=== PATIENT | female | born 1990 | race Caucasian/White ===

== ENCOUNTER → 2017-01-20 | Outpatient (REF) | payer OTHER ==
[~2017-01-20] MED LIST: ACET50TA PO; IBUP-1114 PO; OMEP10CASR PO; STUACAP PO
[2017-01-20 12:48] LABS: MEAN CORPUSCULAR HEMOGLOBIN 26.9 pg (27.0-33.0); MEAN CORPUSCULAR HGB CONC 32.2 g/dl (32.0-36.5); MEAN CORPUSCULAR VOLUME 83.5 fl (80.0-96.0); RED CELL DISTRIBUTION WIDTH 13.5 % (11.5-14.5)
[2017-01-20 12:51] LABS: FOLATE 8.2 NG/ML; VITAMIN B12 LEVEL 319 PG/ML
[2017-01-20 12:54] LABS: ALBUMIN 3.7 GM/DL (3.2-5.2); ALBUMIN/GLOBULIN RATIO 1.23 (1.00-1.93); ALKALINE PHOSPHATASE 71 U/L (45-117); ALT/SGPT 35 U/L (12-78); ANION GAP 9 MEQ/L (8-16); AST/SGOT 20 U/L (15-37); BILIRUBIN,TOTAL 0.3 MG/DL (0.2-1.0); BLOOD UREA NITROGEN 10 MG/DL (7-18); CALCIUM LEVEL 8.7 MG/DL (8.5-10.1); CARBON DIOXIDE LEVEL 28 MEQ/L (21-32); CHLORIDE LEVEL 108 MEQ/L (98-107); CHOLESTEROL LEVEL 110 MG/DL (<200); CREATININE FOR GFR 0.61 MG/DL (0.55-1.02); FERRITIN 32 NG/ML (8-252); FREE T4 0.92 NG/DL (0.76-1.46); GLOMERULAR FILTRATION RATE > 60.0 (>60); GLUCOSE, FASTING 90 MG/DL (70-105); PERCENT SATURATION 13.5 % (13.2-37.4); POTASSIUM SERUM 3.7 MEQ/L (3.5-5.1); SODIUM LEVEL 145 MEQ/L (136-145); TOTAL IRON BINDING CAPACITY 363 UG/DL (250-450); TOTAL PROTEIN 6.7 GM/DL (6.4-8.2); TRIGLYCERIDES LEVEL 70 MG/DL (<150)
== END ==
LOC: M LABDRWAD 12:13
PROVIDERS: ATTEND Registered Nurse
DX: E66.01 Morbid (severe) obesity due to excess calories (principal)

== ENCOUNTER → 2017-02-05 | Outpatient (CLI) | payer OTHER ==
--- NOTE | 2017-02-05 10:45 | REP ---
Clinical: Chest pain. Obesity. Comparison: 09/09/2011 . Technique: PA and lateral. Findings: The mediastinum and cardiac silhouette are normal. The lung hines are clear and without acute consolidation, effusion, or pneumothorax. The skeletal structures are intact and normal. Impression: 1. No acute cardiopulmonary process. Signed by Owen Butcher MD 02/05/2017 10:36 A
--- NOTE | 2017-02-05 10:48 | ECGEPIP ---
Stationary ECG Study [facility] Test Date: 2017-02-05 Pat Name: FRANNY WATKINS Department: Room: - Gender: F Aba Therapist: FRANKIE : 1990 Requested By: Laurel Garduno Order Number: [id number] Reading MD: Edy Solorzano Measurements Intervals [place] Rate: 90 P: 57 TX: 117 QRS: 28 QRSD: 88 T: 20 QT: 330 QTc: 404 Interpretive Statements SINUS RHYTHM WITH SINUS ARRHYTHMIA WITH SHORT TX INTERVAL No prior ECG available for comparison at the time of interpretation. Electronically Signed On 02-05-2017 10:48:27 EDT by Edy Solorzano
== END ==
LOC: M RAD 10:15
PROVIDERS: ATTEND Registered Nurse
DX: E66.01 Morbid (severe) obesity due to excess calories (principal)

== ENCOUNTER → 2018-02-16 | Outpatient (REF) | payer OTHER ==
[2018-02-16 19:56] LABS: HEMATOCRIT 42.5 % (36.0-47.0); HEMOGLOBIN 13.3 g/dl (12.0-15.5); MEAN CORPUSCULAR HEMOGLOBIN 27.6 pg (27.0-33.0); MEAN CORPUSCULAR HGB CONC 31.3 g/dl (32.0-36.5); MEAN CORPUSCULAR VOLUME 88.2 fl (80.0-96.0); PLATELET COUNT, AUTOMATED 364 10^3/uL (150-450); RED BLOOD COUNT 4.82 10^6/uL (4.00-5.40); RED CELL DISTRIBUTION WIDTH 12.5 % (11.5-14.5); WHITE BLOOD COUNT 9.8 10^3/uL (4.0-10.0)
[2018-02-16 20:10] LABS: ALBUMIN 3.8 GM/DL (3.2-5.2); ALBUMIN/GLOBULIN RATIO 1.19 (1.00-1.93); ALKALINE PHOSPHATASE 100 U/L (45-117); ALT/SGPT 19 U/L (12-78); ANION GAP 7 MEQ/L (8-16); AST/SGOT 19 U/L (7-37); BILIRUBIN,TOTAL 0.4 MG/DL (0.2-1.0); BLOOD UREA NITROGEN 9 MG/DL (7-18); CALCIUM LEVEL 8.7 MG/DL (8.5-10.1); CARBON DIOXIDE LEVEL 27 MEQ/L (21-32); CHLORIDE LEVEL 106 MEQ/L (98-107); CREATININE FOR GFR 0.57 MG/DL (0.55-1.30); FERRITIN 37 NG/ML (8-252); GLOMERULAR FILTRATION RATE > 60.0 (>60); GLUCOSE, FASTING 93 MG/DL (70-100); IRON (FE) 19 UG/DL (50-170); PERCENT SATURATION 5.1 % (13.2-45.0); SODIUM LEVEL 140 MEQ/L (136-145); TOTAL IRON BINDING CAPACITY 369 UG/DL (250-450)
[2018-02-16 20:13] LABS: TOTAL 25(OH) VITAMIN D 24.1 NG/ML (30.0-100.0)
[2018-02-16 20:14] LABS: VITAMIN B12 LEVEL 525 PG/ML (247-911)
[2018-02-22 00:08] LABS: VITAMIN B1 LEVEL WHOLE BLOOD 129.2 nmol/L (66.5-200.0)
== END ==
LOC: M LABDRWAD 19:05
DX: K91.2 Postsurgical malabsorption, not elsewhere classified (principal)

== ENCOUNTER → 2018-08-28 | Outpatient (REF) | payer OTHER | LOC: M LAB REF 18:33 | DX: Z12.4 Encounter for screening for malignant neoplasm of cervix (principal) ==

== ENCOUNTER → 2018-08-28 | Outpatient (CLI) | payer OTHER | LOC: M RAD 10:26 | DX: Z12.31 Encounter for screening mammogram for malignant neoplasm of breast (principal) | CPT/HCPCS: 77065 ==

== ENCOUNTER → 2018-10-18 | Outpatient (CLI) | payer OTHER | LOC: M SMT 09:35 | DX: J18.1 Lobar pneumonia, unspecified organism (principal) | CPT/HCPCS: 71046 ==

== ENCOUNTER → 2019-02-21 | Outpatient (REF) | payer OTHER ==
[~2019-02-21] MED LIST changes: -ACET50TA PO; +MAPA500T2 PO
== END ==
LOC: M LAB REF 17:40
PROVIDERS: ATTEND Physician Assistant
DX: R30.0 Dysuria (principal)

== ENCOUNTER → 2019-05-28 | Outpatient (CLI) | payer OTHER ==
--- NOTE | 2019-05-28 09:40 | REP ---
PA and lateral chest: Comparison is 10/18/2018. The lung hines are clear. The cardiac size is normal. The juan, mediastinum, and skeletal structures are unremarkable. Impression: Negative PA and lateral chest. There is no interval change. Electronically Signed by Jesus Winkler MD 05/28/2019 09:31 A
== END ==
LOC: M SMT 09:08
PROVIDERS: ATTEND Physician Assistant
DX: R05 Cough (principal)

== ENCOUNTER → 2019-08-20 | Outpatient (REF) | payer OTHER | LOC: M LAB REF 12:22 | PROVIDERS: ATTEND Pediatrics | DX: R41.82 Altered mental status, unspecified (principal) ==

== ENCOUNTER → 2019-10-29 | Outpatient (CLI) | payer MEDICAID, OTHER | LOC: M OUTALCOH 08:45 | PROVIDERS: ATTEND Psychiatry & Neurology Psychiatry | DX: F10.20 Alcohol dependence, uncomplicated (principal) ==

== ENCOUNTER → 2019-11-15 | Outpatient (CLI) | payer MEDICAID | LOC: M LAB 12:37 | PROVIDERS: ATTEND Counselor Addiction (Substance Use Disorder) | DX: F10.20 Alcohol dependence, uncomplicated (principal) ==

== ENCOUNTER → 2019-11-23 | Outpatient (REF) | payer OTHER | LOC: M PLALAB 12:14 | PROVIDERS: ATTEND Advanced Practice Midwife | DX: Z53.9 Procedure and treatment not carried out, unspecified reason (principal) ==

== ENCOUNTER → 2019-11-23 | Outpatient (CLI) | payer MEDICAID | LOC: M PLALAB 09:15 | PROVIDERS: ATTEND Advanced Practice Midwife | DX: Z32.01 Encounter for pregnancy test, result positive (principal) ==

== ENCOUNTER → 2019-11-25 | Outpatient (CLI) | payer OTHER | LOC: M LAB 09:53 | PROVIDERS: ATTEND Advanced Practice Midwife | DX: O26.851 Spotting complicating pregnancy, first trimester (principal); Z3A.00 Weeks of gestation of pregnancy not specified ==

== ENCOUNTER → 2019-11-29 | Outpatient (CLI) | payer OTHER ==
--- NOTE | 2019-11-30 03:16 | REP ---
Clinical: Dating and viability. Technique: Transabdominal first trimester obstetrical ultrasound with color Doppler evaluation. Findings: Ultrasound examination demonstrates early intrauterine including gestational sac with yolk sac and pole. CRL of 4 mm corresponds to 6 weeks 0 days gestational age with estimated date of delivery 07/24/2020. heart rate equals 104 beats per minute. No gross abnormalities are identified. Maternal ovaries demonstrate right corpus luteal cyst. Cervix measures 3.4 cm in length and appears closed. Impression: Single live early intrauterine at 6 weeks 0 days gestational age. Complete anatomical assessment should be performed at 19-20 weeks.
== END ==
LOC: M WHC 13:18
PROVIDERS: ATTEND Advanced Practice Midwife
DX: O26.851 Spotting complicating pregnancy, first trimester (principal); Z3A.19 19 weeks gestation of pregnancy

== ENCOUNTER 2019-12-11 10:00 | Outpatient (RCR) | payer MEDICAID, OTHER | END 2019-12-14 | LOC: M OUTALCOH 10:00 | PROVIDERS: ATTEND Psychiatry & Neurology Psychiatry | DX: F10.20 Alcohol dependence, uncomplicated (principal) ==

== ENCOUNTER → 2019-12-26 | Outpatient (CLI) | payer OTHER ==
[~2019-12-26] MED LIST changes: +AMOX500C PO; +ONDA4TAB6
[2019-12-26 09:14] LABS: HEMOGLOBIN 12.5 g/dl (12.0-15.5); MEAN CORPUSCULAR HGB CONC 32.1 g/dl (32.0-36.5); MEAN CORPUSCULAR VOLUME 87.4 fl (80.0-96.0); PLATELET COUNT, AUTOMATED 301 10^3/uL (150-450); RED BLOOD COUNT 4.46 10^6/uL (4.00-5.40); WHITE BLOOD COUNT 5.1 10^3/uL (4.0-10.0)
[2019-12-26 09:45] LABS: ALBUMIN 3.2 GM/DL (3.2-5.2); ALT/SGPT 19 U/L (12-78); BILIRUBIN,TOTAL 0.3 MG/DL (0.2-1.0); BLOOD UREA NITROGEN 7 MG/DL (7-18); CALCIUM LEVEL 8.7 MG/DL (8.5-10.1); CARBON DIOXIDE LEVEL 28 MEQ/L (21-32); CHLORIDE LEVEL 106 MEQ/L (98-107); CREATININE FOR GFR 0.53 MG/DL (0.55-1.30); GLOMERULAR FILTRATION RATE > 60.0 (>60); GLUCOSE, FASTING 88 MG/DL (70-100); SODIUM LEVEL 140 MEQ/L (136-145); TOTAL PROTEIN 6.5 GM/DL (6.4-8.2)
[2019-12-26 10:36] LABS: RUBELLA IgG QUALITATIVE IMMUNE (IMMUNE)
[2019-12-26 10:37] LABS: HEPATITIS B SURFACE ANTIGEN NEGATIVE (NEGATIVE)
[2019-12-26 10:54] LABS: CHLAMYDIA DNA AMPLIFICATION NEGATIVE (NEGATIVE); GC DNA AMPLIFICATION NEGATIVE (NEGATIVE)
[2019-12-26 11:05] LABS: HEPATITIS C VIRUS ABY INDEX < 0.0 INDEX (<0.8)
[2019-12-26 11:06] LABS: HIV 1&2 SCREEN CENTAUR NEGATIVE (NEGATIVE)
== END ==
LOC: M LAB 08:10
PROVIDERS: ATTEND Advanced Practice Midwife
DX: Z33.1 Pregnant state, incidental (principal)

== ENCOUNTER 2019-12-27 16:29 | Emergency (ER) | payer OTHER ==
[~2019-12-27] VITALS: Ht 162.6 cm; Wt 91.9 kg
[~2019-12-27 16:29] MED LIST changes: -AMOX500C PO; -ONDA4TAB6
[2019-12-27] MEDS ORDERED: ONDA4TAB6 (16:35)
[2019-12-27] MEDS ORDERED: METOCLOPRAMIDE INJ 10MG/2ML VIAL (J2765) IV ONE (19:15)
[2019-12-27] MEDS ORDERED: NS 1,000 ML IV ONE (19:15)
[2019-12-27 19:19] LABS: BASO % 0.5 % (0.0-1.0); EOS # 0.1 10^3/uL (0.0-0.5); EOS % 1.1 % (0.0-3.0); HEMATOCRIT 38.7 % (36.0-47.0); HEMOGLOBIN 12.4 g/dl (12.0-15.5); LYMPH # 2.2 10^3/uL (1.5-5.0); LYMPH % 34.4 % (24.0-44.0); MEAN CORPUSCULAR HEMOGLOBIN 27.7 pg (27.0-33.0); MEAN CORPUSCULAR VOLUME 86.6 fl (80.0-96.0); MONO # 0.4 10^3/uL (0.0-0.8); MONO % 6.8 % (0.0-5.0); NEUTROPHILS # 3.7 10^3/uL (1.5-8.5); PLATELET COUNT, AUTOMATED 343 10^3/uL (150-450); RED BLOOD COUNT 4.47 10^6/uL (4.00-5.40); WHITE BLOOD COUNT 6.5 10^3/uL (4.0-10.0)
[2019-12-27 20:07] LABS: ALBUMIN 3.5 GM/DL (3.2-5.2); ALT/SGPT 25 U/L (12-78); BILIRUBIN,DIRECT 0.1 MG/DL (0.0-0.2); BILIRUBIN,TOTAL 0.3 MG/DL (0.2-1.0); BLOOD UREA NITROGEN 8 MG/DL (7-18); CARBON DIOXIDE LEVEL 27 MEQ/L (21-32); CHLORIDE LEVEL 103 MEQ/L (98-107); CREATININE FOR GFR 0.44 MG/DL (0.55-1.30); GLOMERULAR FILTRATION RATE > 60.0 (>60); GLUCOSE, FASTING 81 MG/DL (70-100); HCG, SERUM QUANTITATIVE 45408 MIU/ML; SODIUM LEVEL 138 MEQ/L (136-145); TOTAL PROTEIN 6.8 GM/DL (6.4-8.2)
--- NOTE | 2019-12-27 21:59 | REPVR ---
PROCEDURE INFORMATION: Exam: US First Trimester, Transabdominal Exam date and time: 12/27/19 (9:24pm) Age: 29 years old Clinical indication: female. Lower abdominal or pelvic pain. First trimester. Gestational age: 10 weeks 5 days. Spotting / cramping. TECHNIQUE: Imaging protocol: Real-time transabdominal obstetrical ultrasound of the maternal pelvis and a first trimester , less than 14 weeks 0 days, with image documentation. COMPARISON: US OB of 11/29/19 FINDINGS: The LMP is reported to be: 10/18/19 An early live intrauterine gestation is identified, approx. 10 weeks 6 days gestational age, based on the current crown-rump length (CRL = 39 mm). Based on the earlier sonogram, the MAGDI = 07/24/20. Close correlation with the menstrual history is noted. Appropriate interval growth has occurred over the past 4-5 weeks. heart rate is recorded at 178 bpm. The uterus is anteverted. The maternal right ovary measures 2.2 x 3.4 x 2.2 cm in dimensions. The left ovary measures 2.5 x 2.8 x 1.8 cm in dimensions. There is no evidence of torsion on Doppler evaluation. No free pelvic fluid is appreciated. No solid adnexal mass. IMPRESSION: A single live IUP is seen, at 10 weeks 6 days gestational age (based on the CRL). heartbeat is recorded. Appropriate interval growth has occurred over the past 4-5 weeks. No adnexal pathology is seen. No free pelvic fluid is noted. Electronically signed by: Kenzie Norton On 12/27/2019 21:58:48 PM
[2019-12-27] MEDS ORDERED: AMOX500C PO (22:08)
[2019-12-27 22:31] VITALS: BP 135/91
== END 2019-12-27 22:22 | disposition home or self-care (01) ==
LOC: M ED 16:29
DX: O23.41 Unspecified infection of urinary tract in pregnancy, first trimester (principal); O21.9 Vomiting of pregnancy, unspecified; O99.511 Diseases of the respiratory system complicating pregnancy, first trimester; J45.909 Unspecified asthma, uncomplicated; Z3A.10 10 weeks gestation of pregnancy; Z88.8 Allergy status to other drugs, medicaments and biological substances; Z79.899 Other long term (current) drug therapy
CPT/HCPCS: 76801; 80048; 80076; 81001; 84702; 85025; 86901; 87086; 93976; 99284; J2765

== ENCOUNTER 2020-01-08 10:00 | Outpatient (RCR) | payer MEDICAID ==
[~2020-01-08 10:00] MED LIST changes: +AMOX500C PO; +ONDA4TAB6
== END 2020-01-12 ==
LOC: M OUTALCOH 10:00
PROVIDERS: ATTEND Psychiatry & Neurology Psychiatry
DX: F10.20 Alcohol dependence, uncomplicated (principal)

== ENCOUNTER → 2020-02-12 | Outpatient (CLI) | payer OTHER ==
[2020-02-12 18:07] LABS: HEMOGLOBIN A1c 5.1 %
== END ==
LOC: M WUC 10:54
PROVIDERS: ATTEND Nurse Practitioner Women's Health
DX: E66.9 Obesity, unspecified (principal); Z98.84 Bariatric surgery status

== ENCOUNTER → 2020-02-13 | Outpatient (CLI) | payer BC, OTHER | LOC: M ADAMS 12:00 | PROVIDERS: ATTEND Nurse Practitioner Women's Health | DX: Z31.438 Encounter for other genetic testing of female for procreative management (principal) ==

== ENCOUNTER → 2020-02-15 | Outpatient (REF) | payer OTHER ==
[2020-02-15 17:58] LABS: APPEARANCE, URINE TURBID (CLEAR); BACTERIA, URINE AUTO 3+ (NEGATIVE); BILIRUBIN, URINE AUTO NEGATIVE (NEGATIVE); BLOOD, URINE BLOOD NEGATIVE (NEGATIVE); COLOR, URINE AMBER (YELLOW); GLUCOSE, URINE (UA) AUTO NEGATIVE (NEGATIVE); KETONE, URINE AUTO TRACE mg/dL (NEGATIVE); LEUKOCYTE ESTERASE, URINE AUTO TRACE (NEGATIVE); NITRITE, URINE AUTO NEGATIVE (NEGATIVE); PROTEIN, URINE AUTO NEGATIVE (NEGATIVE); RBC, URINE AUTO 0 /HPF (0-3); SPECIFIC GRAVITY URINE AUTO 1.029 (1.002-1.035); SQUAMOUS EPITHELIAL CELL UR AU 5 /HPF (0-6); WBC, URINE AUTO 6 /HPF (0-3)
== END ==
LOC: M SFHCWAGY 16:45
PROVIDERS: ATTEND Advanced Practice Midwife
DX: O26.851 Spotting complicating pregnancy, first trimester (principal); Z3A.00 Weeks of gestation of pregnancy not specified

== ENCOUNTER → 2020-02-15 | Outpatient (CLI) | payer BC, OTHER ==
--- NOTE | 2020-02-15 13:41 | REP ---
OB ULTRASOUND: Real-time sonographic evaluation of the gravid uterus performed utilizing transabdominal and endovaginal technique. There is a single intrauterine gestation. The estimated gestational age is 17 weeks 1 day, EDC 07/24/2020. Today's measurements indicate appropriate growth. Biometry and Growth: BPD 39 mm = 17 weeks 5 days, 76th percentile HC 139 mm = 17 weeks 2 days, 50th percentile AC 116 mm = 17 weeks 2 days, 57th percentile FL 24 mm = 17 weeks 1 day, 52nd percentile HC/AC ratio 1.20 within normal range. Estimated weight 188 grams 53rd percentile. SEEN/GROSSLY UNREMARKABLE Lateral ventricles Yes Posterior fossa Yes Upper lip Yes Four-chamber heart No LVOT No RVOT No Stomach Yes Cord insertion Yes Three vessel cord Yes Kidneys Yes Bladder Yes Spine No Cervical length: Closed and measures 3.7 cm in length. heart rate: 150 beats per minute. position: Vertex. Placenta: Anterior and grade 1 with no previa or abruption. Amniotic fluid: Within normal limits. Edge of the placenta is approximately 3.6 cm from the internal cervical os.
== END ==
LOC: M WHC 11:16
PROVIDERS: ATTEND Advanced Practice Midwife
DX: O26.852 Spotting complicating pregnancy, second trimester (principal); Z3A.17 17 weeks gestation of pregnancy

== ENCOUNTER → 2020-02-20 | Outpatient (CLI) | payer BC ==
--- NOTE | 2020-02-20 09:40 | REP ---
OBSTETRIC SONOGRAPHY: HISTORY: Supervision of for anatomy. COMPARISON STUDY: February 15, 2020. FINDINGS: Scanning through the gravid uterus demonstrates a single living intrauterine gestation in an oblique head to the maternal left lie. motion is observed and heart rate is recorded at 144 beats per minute. An anterior grade 0 placenta is seen without evidence of previa or abruption. The inferior edge of the placenta is 3.6 cm from the internal cervical os on transabdominal imaging. Amniotic fluid is subjectively normal. Closed cervical length is 3.4 cm. No extrauterine abnormality is observed. There has been appropriate interval growth. Exam quality is inhibited some degree by maternal body habitus and position. Left ventricular cardiac outflow tract and spine are visualized today and felt to be unremarkable. The four-chamber heart and right ventricular outflow flow tract views are less than optimally seen again due to position. Biometry Chart: BPD 4.0 cm = 18 weeks 0 days HC 14.4 cm = 17 weeks 4 days AC 12.3 cm = 17 weeks, 6 days FL 2.6 cm = 17 weeks 5 days HL 2.4 cm = 17 weeks 3 days HC/AC ratio normal 1.17 Cephalic index normal 0.78. Estimated weight 211 grams, 0 pounds 7 ounces, 42nd percentile for 17 weeks 6 days. IMPRESSION: Viable single intrauterine gestation at 17 weeks 5 days by today's composite sonographic criteria. Expected gestational age estimate based on prior sonography is 17 weeks 6 days. MAGDI by prior sonography July 24, 2020. Four-chamber heart and right ventricular cardiac outflow tract views less than optimally seen.
== END ==
LOC: M WHC 07:57
PROVIDERS: ATTEND Nurse Practitioner Women's Health
DX: Z34.82 Encounter for supervision of other normal pregnancy, second trimester (principal); Z3A.17 17 weeks gestation of pregnancy

== ENCOUNTER 2020-03-12 08:00 | Outpatient (RCR) | payer BC, MEDICAID | END 2020-03-13 | LOC: M OUTALCOH 08:00 | PROVIDERS: ATTEND Psychiatry & Neurology Addiction Medicine | DX: F10.20 Alcohol dependence, uncomplicated (principal) ==

== ENCOUNTER → 2020-03-12 | Outpatient (CLI) | payer BC ==
--- NOTE | 2020-03-13 04:29 | REP ---
Clinical: Anatomical evaluation. Comparison: 02/20/2020 . Findings: Examination demonstrates a single live intrauterine in cephalic presentation. motion is identified by technologist. Placenta is noted anterior and grade I without evidence for placenta previa or abruption. Amniotic fluid volume is normal. Cervix measures 3.8 cm in length and appears closed. No evidence for nuchal cord. Gestational age by LMP 20 weeks 6 days with MAGDI 07/24/2020 . Gestational age by current measurements 20 weeks 5 days with MAGDI 07/25/2020 . FHR equals 140 beats per minute. Estimated weight 415 grams ( 61st percentile). Anatomical assessment demonstrates normal structures including cranium, choroid plexus, cerebellum/posterior fossa, facial features, lungs, diaphragm, stomach, cord insertion/three-vessel cord, kidneys/bladder. Impression: Single live intrauterine in cephalic presentation demonstrating appropriate interval growth. Continued limited evaluation of the heart is again noted due to positioning and maternal body habitus. Remainder of the examination appears normal.
== END ==
LOC: M WHC 12:53
PROVIDERS: ATTEND Obstetrics & Gynecology
DX: Z36.2 Encounter for other antenatal screening follow-up (principal); Z3A.20 20 weeks gestation of pregnancy

== ENCOUNTER 2020-03-27 14:23 | Outpatient (RCR) | payer BC | END 2020-04-13 | LOC: M OUTALCOH 14:23 | PROVIDERS: ATTEND Psychiatry & Neurology Addiction Medicine | DX: F10.20 Alcohol dependence, uncomplicated (principal) ==

== ENCOUNTER 2020-04-14 11:26 | Outpatient (RCR) | payer BC | END 2020-05-13 | LOC: M OUTALCOH 11:26 | PROVIDERS: ATTEND Psychiatry & Neurology Addiction Medicine | DX: F10.20 Alcohol dependence, uncomplicated (principal) ==

== ENCOUNTER → 2020-04-14 | Outpatient (CLI) | payer BC ==
--- NOTE | 2020-04-15 03:20 | REP ---
Clinical: Anatomical evaluation. Comparison: 03/12/2020 . Findings: Examination demonstrates a single live intrauterine in cephalic presentation. motion is identified by technologist. Placenta is noted anterior and grade I without evidence for placenta previa or abruption. Amniotic fluid volume is normal. Cervix measures 3.5 cm in length and appears closed. No evidence for nuchal cord. Gestational age by LMP 25 weeks 4 days with MAGDI 07/24/1928 . Gestational age by current measurements 25 weeks 1 day with MAGDI 07/27/2020 . FHR equals 161 beats per minute. Estimated weight 845 grams ( 46 percentile). Anatomical assessment demonstrates normal structures including cranium, four-chamber heart/ventricular outflow tracts, diaphragm, stomach, cord insertion, kidneys/bladder, and spine. Impression: Single live intrauterine in cephalic presentation demonstrating appropriate estimated weight and growth. No gross abnormalities are identified.
== END ==
LOC: M WHC 12:58
PROVIDERS: ATTEND Obstetrics & Gynecology
DX: O99.842 Bariatric surgery status complicating pregnancy, second trimester (principal)

== ENCOUNTER → 2020-05-05 | Outpatient (REF) | payer BC ==
[2020-05-05 11:11] LABS: HEMATOCRIT 33.7 % (36.0-47.0); HEMOGLOBIN 10.5 g/dl (12.0-15.5); MEAN CORPUSCULAR HEMOGLOBIN 27.6 pg (27.0-33.0); MEAN CORPUSCULAR HGB CONC 31.2 g/dl (32.0-36.5); MEAN CORPUSCULAR VOLUME 88.5 fl (80.0-96.0); PLATELET COUNT, AUTOMATED 330 10^3/uL (150-450); RED BLOOD COUNT 3.81 10^6/uL (4.00-5.40); WHITE BLOOD COUNT 6.9 10^3/uL (4.0-10.0)
== END ==
LOC: M PLALAB 08:15
PROVIDERS: ATTEND Obstetrics & Gynecology
DX: O99.842 Bariatric surgery status complicating pregnancy, second trimester (principal)

== ENCOUNTER → 2020-05-29 | Outpatient (CLI) | payer BC ==
[~2020-05-29] MED LIST changes: +MULTTAB20 PO; +TUMS750C5 PO
--- NOTE | 2020-05-29 17:27 | REP ---
OB ULTRASOUND: Real-time sonographic evaluation of gravid uterus performed. There is a single living intrauterine gestation, estimated gestational age 32 weeks 1 day, EDC 07/23/2020. Today's measurements indicate appropriate growth BPD 80 mm = 32 weeks 1 day, 50th percentile HC 291 mm = 32 weeks 0 days, 49th percentile AC 276 mm = 31 weeks 4 days, 43rd percentile Femur length 62 mm = 32 weeks 1 day, 51st percentile HC/AC ratio 1.06, within normal range 0.95-1.14. Estimated weight 1851 grams, 38th percentile. Cervix is closed and measures 3.1 cm in length. heart rate 135 beats per minute. Amniotic fluid within normal limits. KESHIA 17.2, normal range 8.6-24.2. position vertex. Placenta anterior and grade 2 with no previa or abruption.
== END ==
LOC: M PLAIMG 13:15
PROVIDERS: ATTEND Advanced Practice Midwife
DX: O99.843 Bariatric surgery status complicating pregnancy, third trimester (principal); Z3A.32 32 weeks gestation of pregnancy

== ENCOUNTER → 2020-06-17 | Outpatient (REF) | payer BC | LOC: M SFHCWAGY 08:11 | PROVIDERS: ATTEND Obstetrics & Gynecology | DX: Z34.83 Encounter for supervision of other normal pregnancy, third trimester (principal); Z3A.00 Weeks of gestation of pregnancy not specified ==

== ENCOUNTER 2020-07-02 23:44 | Outpatient (CLI) | payer BC ==
[~2020-07-02] VITALS: Ht 165.1 cm; Wt 104.6 kg
[~2020-07-02 23:44] MED LIST changes: -MULTTAB20 PO; -TUMS750C5 PO
[2020-07-03 00:04] VITALS: BP 122/70
[2020-07-03] MEDS ORDERED: PRENATAL VITAMINS CHEWABLE TABLET PO SCH (09:00)
== END 2020-07-03 03:40 | disposition home or self-care (01) ==
LOC: M LDO 23:44
PROVIDERS: ATTEND Advanced Practice Midwife
DX: O47.1 False labor at or after 37 completed weeks of gestation (principal); Z3A.37 37 weeks gestation of pregnancy
CPT/HCPCS: 59025; G0378; G0463

== ENCOUNTER 2020-07-05 05:23 | Outpatient (CLI) | payer BC ==
--- NOTE | 2020-07-05 08:15 | IPNPDOC ---
Text Note Date of Service The patient was seen on 07/05/20. NOTE Outpatient 30yo MAGDI 07/22/2020. Presents @ 37w4d with complaints of contractions. History is significant for previous delivery at 36wks, and current advanced dilation of 5cm. Denies LOF, bleeding. States fetus is active. No apparent distress. Appears anxious. Abdomen soft, gravid Mild uterine irritability. heart 145, initially minimal variability, moderate variability with hydration and protein snack. Cat I prior to discharge SVE 5/100/-1 Pt reports not eating much at all yesterday due to her stomach being off. Reviewed need for small frequent protein snacks to reduce nausea. Also encouraged increased hydration. Discharged home. Routine precautions. Keep next appt Aminah Siddiqui CNM Jul 05, 2020 06:36
[2020-07-05] MEDS ORDERED: TUMS750C5 PO (09:33)
[2020-07-05] MEDS ORDERED: MULTTAB20 PO (09:33)
== END 2020-07-05 07:05 | disposition home or self-care (01) ==
LOC: M LDO 05:23
PROVIDERS: ATTEND Advanced Practice Midwife
DX: O26.893 Other specified pregnancy related conditions, third trimester (principal); Z3A.37 37 weeks gestation of pregnancy
CPT/HCPCS: 59025; G0378; G0463

== ENCOUNTER 2020-07-05 09:16 | Inpatient (IN) | payer BC ==
[2020-07-05] VITALS (14 sets, daily range): BP systolic 110–138; BP diastolic 64–86
[~2020-07-05] VITALS: Ht 165.1 cm; Wt 103.6 kg
[2020-07-05] MEDS ORDERED: MULTTAB20 PO (09:33)
[2020-07-05] MEDS ORDERED: TUMS750C5 PO (09:33)
[2020-07-05] MEDS ORDERED: PROMETHAZINE INJ 25 MG/ML VIAL (J2550) IV ONE (10:30)
[2020-07-05] MEDS ORDERED: MORPHINE 10 MG/ML 1ML VIAL (J2270) IV ONE (10:30)
[2020-07-05] MEDS ORDERED: MORPHINE 10 MG/ML 1ML VIAL (J2270) SC ONE (10:30)
[2020-07-05] MEDS: LR 1,000 ML IV SCH ×2 (10:52→18:49)
[2020-07-05] MEDS ORDERED: LACTATED RINGER'S 1000 ML IV STA (16:53)
[2020-07-05] MEDS ORDERED: LR 1,000 ML IV SCH (16:53)
[2020-07-05] MEDS ORDERED: FENTANYL 2MCG/ML ROPIVACAINE 0.2% IN 0.9% NACL 100ML IVBAG As Ordered ONE (16:54)
[2020-07-05 17:05] LABS: HEMATOCRIT 33.9 % (36.0-47.0); HEMOGLOBIN 10.4 g/dl (12.0-15.5); MEAN CORPUSCULAR HEMOGLOBIN 26.1 pg (27.0-33.0); MEAN CORPUSCULAR HGB CONC 30.7 g/dl (32.0-36.5); PLATELET COUNT, AUTOMATED 359 10^3/uL (150-450); RED BLOOD COUNT 3.99 10^6/uL (4.00-5.40); WHITE BLOOD COUNT 11.7 10^3/uL (4.0-10.0)
--- NOTE | 2020-07-05 17:18 | HPEPDOC ---
Obstetrical History & Physical General Date of Admission Jul 05, 2020 at 16:48 History of Present Illness 22-year-old 2, para 1 who presents at 37 weeks 4 days estimated gestational age with increased contractions and pressure. She was provided with therapeutic rest prior to therapeutic rest, she was 5 cm after rest. She progressed to 7, complete 0 station with a bulging bag of membranes Chief Complaint: Contractions, term Information Provided By: Patient Age: 30 : 2 Pre-term: 1 Livin Care Care: Good Care Dating Final EDC: Jul 22, 2020 Past Medical History Past Obstetrical History : Past Obstetrical History: Multigravida Type of Delivery: Spontaneous Vaginal Del. Past Medical History Surgical History: Gallbladder (Cholecystectomy 2016.), Other (Dara-en-Y gastric bypass 2017) Social History Marital Status: Family situation: Spouse/partner home Psychosocial History: No pertinent psych hx * Smoker: non-smoker Alcohol: Denies Drugs: denies Allergies Coded Allergies: fluoxetine (Verified Allergy, Unknown, 12/27/19) rash Medications Scheduled No122/Iron/Folic Acid ( Multi Tablet) 1 Each Tablet, 1 TAB PO DAILY Scheduled PRN Acetaminophen (Mapap) 500 Mg Tab, 1,000 MG PO Q6HP PRN for MILD PAIN (PS 1-4) Calcium Carbonate (Tums) 300 Mg Tab.chew, 750 MG PO Q6H PRN for HEARTBURN/INDIGESTION Physical Examination Physical Examination GENERAL: Alert and oriented times three. BREAST: . ABDOMEN: Gravid and non-tender to touch. FETUS: Is vertex (VTX) by sterile vaginal examination (SVE), fetus is vertex (VTX) by Sai. HEART RATE: Regular rate and rhythm. LUNGS: Clear to auscultation (CTA). Vital Signs/I&O Vital Signs Date Time Temp Pulse Resp B/P (MAP) Pulse Ox O2 Delivery O2 Flow Rate FiO2 07/05/20 13:58 98.0 80 20 126/81 (96) 07/05/20 11:01 Room Air Laboratory Data 24H LABS Laboratory Tests 2 07/05/20 10:50: Nucleated Red Blood Cells % (auto) 0.0 07/05/20 16:56: Serology Scanned Report Hepatitis B Testing CBC/BMP Laboratory Tests 07/05/20 10:50 Pertinent Laboratoy Data Blood Type: A+ RBC Antibody Screen: Negative HIV: Negative Hepatitis B: Negative Hepatitis C: Negative Rapid Plasma Reagin: Nonreactive Rubella: Immune Chlamydia/Gonorrhea: Negative Group B Streptococcus: Negative Vaginal Examination Dilation: 7 cm Effacement: 100% Station: -1, 0 Cervical Consistency: Soft Cervical Position: Anterior Presentation: Cephalic presentation Assessment Variability: Moderate Accelerations: Positive Tocometer Frequency: regular Assessment/Plan Assessment 30-year-old 2, para 1 at 37 weeks 4 days estimated gestational age in active labor. Reassuring status Plan Admit and orient. 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 Group B Streptococcus (GBS) negative. Labs and intravenous (IV) per unit protocol. Counseled on Pitocin and induction of labor (IOL). Anticipate normal spontaneous delivery (). C-S as appropriate. BHAVANI ROTHMAN MD. Jul 05, 2020 17:17
[2020-07-05] MEDS ORDERED: FENTANYL/ROPIVACAINE/NACL BAG 100 ML EPIDURAL SCH (18:15)
[2020-07-05] MEDS ORDERED: diphenhydrAMINE 50MG/ML VIAL (J1200) IV PRN (18:15)
[2020-07-05] MEDS ORDERED: NALOXONE INJ 0.4MG/1ML VIAL (J2310 PER 1MG) IV PRN (18:15)
[2020-07-05] MEDS ORDERED: EPIDURAL COMMENT XX SCH (18:15)
[2020-07-05] MEDS ORDERED: EPIDURAL/PCA KEYS XX PRN (18:15)
[2020-07-05] MEDS ORDERED: ePHEDrine SULFATE 25 MG/5 ML(5MG/ML) SYRINGE IV PRN (18:15)
[2020-07-05] MEDS ORDERED: ONDANSETRON 4MG/2ML VIAL IV PRN (18:15)
[2020-07-05] MEDS ORDERED: REFRIGERATOR IV KEYS XX PRN (18:15)
[2020-07-05] MEDS ORDERED: OXYTOCIN 30 UNITS IN 0.9% NaCl 500ML IV BAG (J2590) As Ordered ONE (18:27)
--- NOTE | 2020-07-05 19:53 | DNPDOC ---
[facility] Delivery Note Delivery Note DATE OF DELIVERY: 07/05/2020 TIME OF : 192 GENDER:, Female. APGARS: 8 and 9. WEIGHT:, 2780 grams or 6 pounds 2 ounces. LACERATIONS:. None ANESTHESIA: Epidural. ESTIMATED BLOOD LOSS: 300ml COUNTS: 5 laparotomy sponges accounted for prior to after delivery. DELIVERY NOTE: On 07/05/2020 at 1729, Mrs. Moore a 30-year-old 2 now para 2, had a spontaneous vaginal delivery of viable female , Apgars, 8 a nd 9. Weight was 2780 g, 6 lbs. 2 oz. Head was delivered occiput anterior (OA) , followed by delivery of the shoulders and corpus. Infant was handed to mom with a good cry. Cord was clamped times two and was cut by the father of baby under my direction. Placenta was then drained and delivered grossly intact. A premixed bag of 500 mL of normal saline with 30 units of Pitocin was then bolused along with uterine massage until the uterus was firm. On inspection,. On reinspection, cervix, vagina, perineum was grossly intact and hemostatic. Mom and baby in recovery on stable condition. The couple has decided to name the daughter Louie ROTHMANBHAVANI MD. Jul 05, 2020 19:53
[2020-07-05] MEDS ORDERED: OXYTOCIN DRIP 30 UNITS in IV 1 EA IV SCH (19:55)
[2020-07-05] MEDS ORDERED: DIBUCAINE 1% OINTMENT 30GM TOP PRN (20:00)
[2020-07-05] MEDS ORDERED: IBUPROFEN 600MG TAB PO PRN (20:00)
[2020-07-05] MEDS ORDERED: IBUPROFEN 800 MG TAB PO PRN (20:00)
[2020-07-05] MEDS ORDERED: ANUSOL HC CREAM 30GM TOP PRN (20:00)
[2020-07-05] MEDS ORDERED: MOM 30ML SUSPENSION UDC PO PRN (20:00)
[2020-07-05] MEDS ORDERED: ACETAMINOPHEN TAB 650MG DOSE (2X325MG) PO PRN (20:00)
[2020-07-05] MEDS ORDERED: DOCUSATE SODIUM 100 MG CAP PO PRN (20:00)
[2020-07-05] MEDS ORDERED: MEASLES,MUMPS,RUBELLA VACCINE INJ (MMR-II) (90707) SC SCH (20:00)
[2020-07-05] MEDS ORDERED: METHYLERGONOVINE MALEATE 0.2 MG TAB PO PRN (20:00)
[2020-07-05] MEDS ORDERED: RHOGAM 300 MCG (1500 IU) INJ (J2790) IM SCH (20:00)
[2020-07-06 06:00] VITALS: BP 116/69
[2020-07-06] MEDS: PRENATAL VITAMINS CHEWABLE TABLET PO SCH (09:00)
[2020-07-06] MEDS: ACETAMINOPHEN 500 MG TAB PO PRN ×2 (10:43→20:38)
--- NOTE | 2020-07-06 11:06 | IPNPDOC ---
Progress Note Date of Service: Jul 06, 2020 Day#: 1 Progress Note SUBJECT: Doing well without complaints. Ambulating, voiding and pain is well-c ontrolled. Reports minimal lochia. +breast feeding OBJECTIVE: VITAL SIGNS: Within normal limits, afebrile. Alert and oriented times three. Abdomen: Fundus firm at U-2. Soft, NTTP. Ext: neg calf tenderness. ASSESSMENT: day #1 status post normal spontaneous vaginal delivery. Recovering in stable condition. PLAN: 1. Continue routine care 2. Discharge plans for tomorrow VS, I&O, 24H, Fishbone Vital Signs/I&O Vital Signs Date Time Temp Pulse Resp B/P (MAP) Pulse Ox O2 Delivery O2 Flow Rate FiO2 07/06/20 06:00 97.4 71 18 116/69 (85) 07/05/20 22:00 100 Room Air I&O- Last 24 Hours up to 6 AM 07/06/20 05:59 Intake Total 2000 ml Output Total 300 ml Balance 1700 ml Laboratory Data 24H LABS Laboratory Tests 2 07/05/20 16:56: Serology Scanned Report Hepatitis B Testing BHAVANI ROTHMAN MD. Jul 06, 2020 11:06
[2020-07-06 17:44] VITALS: BP 121/84
[2020-07-07] MEDS: ACETAMINOPHEN 500 MG TAB PO PRN ×2 (03:17→09:53)
[2020-07-07 06:00] VITALS: BP 128/76
[2020-07-07] MEDS: PRENATAL VITAMINS CHEWABLE TABLET PO SCH (07:20)
== END 2020-07-07 12:52 | disposition home or self-care (01) | DRG 560 ==
LOC: M LDO 09:16 → M LDI 16:48 → M OBS 22:12
PROVIDERS: ADMIT Obstetrics & Gynecology; ATTEND Obstetrics & Gynecology
PROC: 10E0XZZ Delivery of Products of Conception, External Approach (ICD-10-PCS; principal; 2020-07-05)
DX: O99.844 Bariatric surgery status complicating childbirth (principal); Z37.0 Single live birth; Z3A.37 37 weeks gestation of pregnancy

== ENCOUNTER → 2021-02-03 | Outpatient (REF) | payer BC ==
[~2021-02-03] MED LIST changes: +MULTTAB20 PO; +TUMS750C5 PO
== END ==
LOC: M LAB REF 17:03
PROVIDERS: ATTEND Physician Assistant
DX: R30.9 Painful micturition, unspecified (principal)

== ENCOUNTER → 2021-02-06 | Outpatient (CLI) | payer BC | LOC: M LAB 08:03 | PROVIDERS: ATTEND Family Medicine | DX: Z01.84 Encounter for antibody response examination (principal) ==

== ENCOUNTER → 2021-05-29 | Outpatient (CLI) | payer BC ==
[2021-05-29 11:03] LABS: BASO # 0.1 10^3/uL (0.0-0.2); BASO % 0.9 % (0.0-1.0); EOS # 0.1 10^3/uL (0.0-0.5); EOS % 2.5 % (0.0-3.0); HEMATOCRIT 37.7 % (36.0-47.0); HEMOGLOBIN 11.1 g/dl (12.0-15.5); LYMPH # 1.5 10^3/uL (1.5-5.0); MEAN CORPUSCULAR HGB CONC 29.4 g/dl (32.0-36.5); MEAN CORPUSCULAR VOLUME 74.7 fl (80.0-96.0); MONO # 0.4 10^3/uL (0.0-0.8); MONO % 7.2 % (2.0-8.0); NEUTROPHILS # 3.5 10^3/uL (1.5-8.5); NEUTROPHILS % 62.2 % (36.0-66.0); PLATELET COUNT, AUTOMATED 436 10^3/uL (150-450); RED BLOOD COUNT 5.05 10^6/uL (4.00-5.40); WHITE BLOOD COUNT 5.6 10^3/uL (4.0-10.0)
[2021-05-29 12:04] LABS: FREE T4 1.06 NG/DL (0.76-1.46); PERCENT SATURATION 7.4 % (13.2-45.0); THYROID STIMULATING HORMONE 2.75 uIU/ML (0.358-3.740); TOTAL 25(OH) VITAMIN D 22.9 NG/ML (30.0-100.0)
== END ==
LOC: M PLALAB 08:09
PROVIDERS: ATTEND Family Medicine
DX: Z13.29 Encounter for screening for other suspected endocrine disorder (principal); Z98.84 Bariatric surgery status; Z13.0 Encounter for screening for diseases of the blood and blood-forming organs and certain disorders involving the immune mechanism

== ENCOUNTER → 2021-11-27 | Outpatient (REF) | payer BC | LOC: M LAB REF 16:42 | PROVIDERS: ATTEND Physician Assistant | DX: R30.9 Painful micturition, unspecified (principal) ==

== ENCOUNTER → 2022-01-12 | Outpatient (REF) | payer BC ==
[2022-01-12 17:45] LABS: BASO # 0.1 10^3/uL (0.0-0.2); BASO % 0.9 % (0.0-1.0); EOS # 0.1 10^3/uL (0.0-0.5); EOS % 1.5 % (0.0-3.0); HEMOGLOBIN 10.9 g/dl (12.0-15.5); LYMPH # 2.2 10^3/uL (1.5-5.0); LYMPH % 27.7 % (24.0-44.0); MEAN CORPUSCULAR HEMOGLOBIN 22.7 pg (27.0-33.0); MEAN CORPUSCULAR HGB CONC 29.5 g/dl (32.0-36.5); MEAN CORPUSCULAR VOLUME 76.9 fl (80.0-96.0); MONO # 0.5 10^3/uL (0.0-0.8); MONO % 5.8 % (2.0-8.0); NEUTROPHILS # 5.1 10^3/uL (1.5-8.5); NEUTROPHILS % 63.9 % (36.0-66.0); PLATELET COUNT, AUTOMATED 498 10^3/uL (150-450); RED BLOOD COUNT 4.81 10^6/uL (4.00-5.40)
[2022-01-12 18:19] LABS: ALBUMIN 4.1 GM/DL (3.2-5.2); ALT/SGPT 22 U/L (12-78); BILIRUBIN,TOTAL 0.3 MG/DL (0.2-1.0); BLOOD UREA NITROGEN 7 MG/DL (7-18); CALCIUM LEVEL 9.7 MG/DL (8.5-10.1); CARBON DIOXIDE LEVEL 27 MEQ/L (21-32); CHLORIDE LEVEL 111 MEQ/L (98-107); CREATININE FOR GFR 0.54 MG/DL (0.55-1.30); FREE T4 0.98 NG/DL (0.76-1.46); GLOMERULAR FILTRATION RATE > 60.0 (>60); GLUCOSE, FASTING 89 MG/DL (70-100); IRON (FE) 17 UG/DL (50-170); PERCENT SATURATION 3.7 % (13.2-45.0); POTASSIUM SERUM 4.3 MEQ/L (3.5-5.1); SODIUM LEVEL 146 MEQ/L (136-145); TOTAL IRON BINDING CAPACITY 461 UG/DL (250-450); TOTAL PROTEIN 7.4 GM/DL (6.4-8.2)
[2022-01-12 18:21] LABS: FOLATE 15.5 NG/ML; VITAMIN B12 LEVEL 702 PG/ML
== END ==
LOC: M LABDRWAD 16:08
PROVIDERS: ATTEND Nurse Practitioner Adult Health
DX: L65.9 Nonscarring hair loss, unspecified (principal)

== ENCOUNTER → 2022-06-08 | Outpatient (CLI) | payer BC ==
[2022-06-08 13:51] LABS: BASO # 0.1 10^3/uL (0.0-0.2); BASO % 1.1 % (0.0-1.0); EOS # 0.1 10^3/uL (0.0-0.5); EOS % 2.2 % (0.0-3.0); HEMATOCRIT 44.7 % (36.0-47.0); HEMOGLOBIN 13.7 g/dl (12.0-15.5); LYMPH # 1.2 10^3/uL (1.5-5.0); LYMPH % 22.6 % (24.0-44.0); MEAN CORPUSCULAR HGB CONC 30.6 g/dl (32.0-36.5); MEAN CORPUSCULAR VOLUME 84.8 fl (80.0-96.0); MONO # 0.3 10^3/uL (0.0-0.8); MONO % 5.2 % (2.0-8.0); NEUTROPHILS # 3.7 10^3/uL (1.5-8.5); NEUTROPHILS % 68.5 % (36.0-66.0); PLATELET COUNT, AUTOMATED 384 10^3/uL (150-450); RED BLOOD COUNT 5.27 10^6/uL (4.00-5.40); WHITE BLOOD COUNT 5.4 10^3/uL (4.0-10.0)
[2022-06-08 14:30] LABS: PERCENT SATURATION 33.9 % (13.2-45.0)
== END ==
LOC: M WUC 09:48
PROVIDERS: ATTEND Nurse Practitioner Adult Health
DX: D50.9 Iron deficiency anemia, unspecified (principal); F90.0 Attention-deficit hyperactivity disorder, predominantly inattentive type

== ENCOUNTER → 2022-11-19 | Outpatient (CLI) | payer BC | LOC: M RAD 07:00 | PROVIDERS: ATTEND Nurse Practitioner Adult Health | DX: R51.9 Headache, unspecified (principal) ==

== ENCOUNTER → 2023-09-23 | Outpatient (CLI) | payer BC ==
[~2023-09-23] MED LIST changes: +CLAR500T97 PO; +OMEP-173; +VYVA40CA3
== END ==
LOC: M RAD 11:36
PROVIDERS: ATTEND Internal Medicine Hematology & Oncology
DX: R91.8 Other nonspecific abnormal finding of lung field (principal)

== ENCOUNTER → 2023-12-16 | Outpatient (REF) | payer BC ==
[2023-12-16 11:19] LABS: BLOOD UREA NITROGEN 10 MG/DL (9-23); CALCIUM LEVEL 9.7 MG/DL (8.5-10.1); CARBON DIOXIDE LEVEL 26 MMOL/L (20-31); CHLORIDE LEVEL 106 MMOL/L (98-107); CREATININE FOR GFR 0.63 MG/DL (0.55-1.30); GLOMERULAR FILTRATION RATE > 60.0 (>60); GLUCOSE, FASTING 79 MG/DL (60-100); IRON (FE) 65 UG/DL (50-170); PERCENT SATURATION 18.1 % (13.2-45.0); POTASSIUM SERUM 4.3 MMOL/L (3.5-5.1); SODIUM LEVEL 137 MMOL/L (136-145); TOTAL IRON BINDING CAPACITY 360 UG/DL (250-425)
[2023-12-16 11:20] LABS: THYROID STIMULATING HORMONE 2.876 uIU/ML (0.55-4.78)
[2023-12-16 11:21] LABS: FREE T4 1.09 NG/DL (0.89-1.76); VITAMIN B12 LEVEL 450 PG/ML (211-911)
[2023-12-16 11:22] LABS: FOLATE 14.5 NG/ML (>5.4)
[2023-12-16 13:09] LABS: BASO # 0.1 10^3/uL (0.0-0.2); BASO % 0.9 % (0.0-1.0); EOS # 0.1 10^3/uL (0.0-0.5); EOS % 1.9 % (0.0-3.0); HEMATOCRIT 43.4 % (36.0-47.0); HEMOGLOBIN 14.2 g/dl (12.0-15.5); LYMPH # 1.8 10^3/uL (1.5-5.0); LYMPH % 25.6 % (24.0-44.0); MEAN CORPUSCULAR HEMOGLOBIN 28.2 pg (27.0-33.0); MEAN CORPUSCULAR HGB CONC 32.7 g/dl (32.0-36.5); MEAN CORPUSCULAR VOLUME 86.3 fl (80.0-96.0); MONO # 0.4 10^3/uL (0.0-0.8); MONO % 5.6 % (2.0-8.0); NEUTROPHILS # 4.6 10^3/uL (1.5-8.5); NEUTROPHILS % 65.7 % (36.0-66.0); PLATELET COUNT, AUTOMATED 392 10^3/uL (150-450); RED BLOOD COUNT 5.03 10^6/uL (4.00-5.40)
== END ==
LOC: M LAB REF 10:34
PROVIDERS: ATTEND Nurse Practitioner Adult Health
DX: Z98.84 Bariatric surgery status (principal); N39.0 Urinary tract infection, site not specified; B96.20 Unspecified Escherichia coli [E. coli] as the cause of diseases classified elsewhere

== ENCOUNTER → 2024-01-04 | Outpatient (REF) | payer BC | LOC: M LAB REF 16:58 | PROVIDERS: ATTEND Nurse Practitioner Adult Health | DX: J02.0 Streptococcal pharyngitis (principal) ==

== ENCOUNTER → 2024-06-21 | Outpatient (REF) | payer BC ==
[~2024-06-21] MED LIST changes: +ONDA-282; -ONDA4TAB6
[2024-06-21 09:54] LABS: BASO # 0.1 10^3/uL (0.0-0.2); BASO % 1.2 % (0.0-1.0); EOS # 0.2 10^3/uL (0.0-0.5); EOS % 4.4 % (0.0-3.0); HEMATOCRIT 43.9 % (36.0-47.0); HEMOGLOBIN 13.9 g/dl (12.0-15.5); LYMPH # 1.5 10^3/uL (1.5-5.0); LYMPH % 29.4 % (24.0-44.0); MEAN CORPUSCULAR HEMOGLOBIN 27.4 pg (27.0-33.0); MEAN CORPUSCULAR HGB CONC 31.7 g/dl (32.0-36.5); MEAN CORPUSCULAR VOLUME 86.4 fl (80.0-96.0); MONO # 0.3 10^3/uL (0.0-0.8); MONO % 6.8 % (2.0-8.0); NEUTROPHILS # 2.9 10^3/uL (1.5-8.5); PLATELET COUNT, AUTOMATED 410 10^3/uL (150-450); RED BLOOD COUNT 5.08 10^6/uL (4.00-5.40)
[2024-06-21 10:02] LABS: ALBUMIN 3.9 G/DL (3.2-5.2); ALKALINE PHOSPHATASE 72 U/L (46-116); ALT/SGPT 17 U/L (7.0-40); AST/SGOT 14 U/L (<34); BILIRUBIN,TOTAL 0.4 MG/DL (0.3-1.2); BLOOD UREA NITROGEN 10 MG/DL (9-23); CALCIUM LEVEL 9.5 MG/DL (8.5-10.1); CARBON DIOXIDE LEVEL 28 MMOL/L (20-31); CHLORIDE LEVEL 107 MMOL/L (98-107); CHOLESTEROL LEVEL 137 MG/DL (<200); CREATININE FOR GFR 0.66 MG/DL (0.55-1.30); GLOMERULAR FILTRATION RATE > 60.0 (>60); GLUCOSE, FASTING 75 MG/DL (60-100); HDL CHOLESTEROL 59.4 MG/DL (>40); IRON (FE) 54 UG/DL (50-170); LDL CHOLESTEROL 71.2 MG/DL (<100); NON-HDL-C 77.6 MG/DL; PERCENT SATURATION 13.9 % (13.2-45.0); POTASSIUM SERUM 4.1 MMOL/L (3.5-5.1); SODIUM LEVEL 139 MMOL/L (136-145); TOTAL IRON BINDING CAPACITY 388 UG/DL (250-425); TOTAL PROTEIN 7.1 G/DL (5.7-8.2); TRIGLYCERIDES LEVEL 32 MG/DL (<150)
[2024-06-21 10:03] LABS: FREE T4 1.15 NG/DL (0.89-1.76); THYROID STIMULATING HORMONE 2.544 uIU/ML (0.55-4.78); VITAMIN B12 LEVEL 584 PG/ML (211-911)
[2024-06-21 10:05] LABS: FOLATE 11.2 NG/ML (>5.4)
== END ==
LOC: M LAB REF 09:01
PROVIDERS: ATTEND Nurse Practitioner Adult Health
DX: Z98.84 Bariatric surgery status (principal)

== ENCOUNTER → 2024-09-13 | Outpatient (REF) | payer BC ==
[2024-09-16 02:00] LABS: HPV APTIMA Not Detected (Not Detected)
== END ==
LOC: M SFHCWAGY 13:09
PROVIDERS: ATTEND Nurse Practitioner Family
DX: Z12.4 Encounter for screening for malignant neoplasm of cervix (principal)
CPT/HCPCS: 87624; G0123

== ENCOUNTER → 2025-10-01 | Outpatient (REF) | payer BC ==
[2025-10-01 08:27] LABS: BASO # 0.1 10^3/uL (0.0-0.2); BASO % 1.1 % (0.0-1.0); EOS # 0.1 10^3/uL (0.0-0.5); EOS % 1.9 % (0.0-3.0); LYMPH # 1.8 10^3/uL (1.5-5.0); LYMPH % 28.5 % (24.0-44.0); MONO # 0.4 10^3/uL (0.0-0.8); MONO % 6.7 % (2.0-8.0); NEUTROPHILS # 3.9 10^3/uL (1.5-8.5); NEUTROPHILS % 61.6 % (36.0-66.0); PLATELET COUNT, AUTOMATED 431 10^3/uL (150-450)
[2025-10-01 08:34] LABS: APPEARANCE, URINE HAZY (CLEAR); BACTERIA, URINE AUTO NEGATIVE (NEGATIVE); BILIRUBIN, URINE AUTO NEGATIVE (NEGATIVE); BLOOD, URINE BLOOD NEGATIVE (NEGATIVE); GLUCOSE, URINE (UA) AUTO NEGATIVE (NEGATIVE); KETONE, URINE AUTO NEGATIVE (NEGATIVE); LEUKOCYTE ESTERASE, URINE AUTO TRACE (NEGATIVE); MUCUS, URINE SMALL (NEGATIVE); NITRITE, URINE AUTO NEGATIVE (NEGATIVE); PROTEIN, URINE AUTO NEGATIVE (NEGATIVE); RBC, URINE AUTO 1 /HPF (0-3); SPECIFIC GRAVITY URINE AUTO 1.025 (1.002-1.035); SQUAMOUS EPITHELIAL CELL UR AU 9 /HPF (0-6); UROBILINOGEN, URINE AUTO 4.0 mg/dL (0.0-2.0); WBC, URINE AUTO 2 /HPF (0-3)
[2025-10-01 08:59] LABS: ALT/SGPT 18 U/L (7.0-40); AST/SGOT 21 U/L (<34); CALCIUM LEVEL 9.4 MG/DL (8.5-10.1); CARBON DIOXIDE LEVEL 26 MMOL/L (20-31); CHLORIDE LEVEL 103 MMOL/L (98-107); CREATININE FOR GFR 0.64 MG/DL (0.55-1.30); GLOMERULAR FILTRATION RATE > 90.0 (>60); POTASSIUM SERUM 3.9 MMOL/L (3.5-5.1); SODIUM LEVEL 140 MMOL/L (136-145)
== END ==
LOC: M EMP 07:52
PROVIDERS: ATTEND Family Medicine
DX: Z01.89 Encounter for other specified special examinations (principal)